=== PATIENT | male | born 1960 | race Caucasian/White ===

== ENCOUNTER 2017-04-09 16:52 | Emergency (ER) | payer MEDICARE ==
[~2017-04-09] VITALS: Ht 182.9 cm; Wt 108.9 kg
[~2017-04-09 16:52] MED LIST: ASPI-498 PO; CLOP75TA41 PO; LIS20T PO; MET50T PO; NITR0.4S29 SL; SIMV-13 PO
[2017-04-09 17:13] VITALS: BP 140/75
[2017-04-09] MEDS ORDERED: cefTRIAXone SOD 1,000 MG VL IM ONE (17:30)
== END 2017-04-09 17:47 | disposition home or self-care (01) ==
LOC: ER 17:01
DX: S80.862A Insect bite (nonvenomous), left lower leg, initial encounter (principal); S80.861A Insect bite (nonvenomous), right lower leg, initial encounter; I10 Essential (primary) hypertension; I25.2 Old myocardial infarction; E78.5 Hyperlipidemia, unspecified; Z86.73 Personal history of transient ischemic attack (TIA), and cerebral infarction without residual deficits; Z98.61 Coronary angioplasty status; Z91.018 Allergy to other foods; Z91.013 Allergy to seafood; W57.XXXA Bitten or stung by nonvenomous insect and other nonvenomous arthropods, initial encounter; Y93.89 Activity, other specified; Y99.8 Other external cause status; Y92.89 Other specified places as the place of occurrence of the external cause
CPT/HCPCS: 96372; 99283; J0696

== ENCOUNTER 2019-09-05 00:24 | Emergency (ER) | payer OTHER ==
[~2019-09-05] VITALS: Ht 182.9 cm; Wt 117.9 kg
[~2019-09-05 00:24] MED LIST changes: +BAC09TP TOP; +DIPH25CA66 PO; +PRE5T PO; +SULF400T11 PO
[2019-09-05 01:46] LABS: Basophils # (auto) 0.1 uL; Basophils % (auto) 0.9 % (0.0-2.0); Eosinophils # (auto) 0.4 uL; Hematocrit 42.7 % (41.0-53.0); Hemoglobin 14.9 g/dL (13.5-17.5); Lymphocytes # (auto) 1.6 uL; Lymphocytes % (auto) 20.2 % (10.0-50.0); Mean Corpuscular Hemoglobin 33.7 pg (28.0-32.0); Mean Corpuscular Hgb Conc. 34.9 g/dL (32.0-36.0); Mean Corpuscular Volume 96.5 fL (80.0-100.0); Monocytes # (auto) 0.6 uL; Monocytes % (auto) 7.2 % (0.0-12.0); Neutrophils # (auto) 5.3 uL; Neutrophils % (auto) 66.7 % (37.0-80.0); Nucleated Red Blood Cells % 0.1 %; Platelet Count (auto) 220 10^3/uL (140-450); Red Blood Cells 4.43 10^6/uL (4.5-5.90); White Blood Cell 7.9 10^3/uL (4.4-10.8)
[2019-09-05 02:04] LABS: Alanine Aminotransferase 43 U/L (16-61); Albumin 3.7 g/dL (3.4-5.0); Anion Gap 6 (5-15); Aspartate Aminotransferase 28 U/L (15-37); Blood Urea Nitrogen 11 mg/dL (7-18); Calcium 8.7 mg/dL (8.5-10.1); Carbon Dioxide 24 mmol/L (21-32); Chloride 109 mmol/L (98-107); GFR African American 109 mL/min; GFR Non-African American 90 mL/min; Glucose 115 mg/dL (74-106); Potassium 4.3 mmol/L (3.5-5.1); Sodium 139 mmol/L (136-145)
[2019-09-05 02:20] LABS: Alkaline Phosphatase 67 U/L (45-117); Bilirubin, Total 0.8 mg/dL (0.2-1.0); Total Protein 7.5 g/dL (6.4-8.2)
[2019-09-05] MEDS ORDERED: IOHEXOL 300 MG/ML 100ML BOTTLE IJ ONE (04:42)
[2019-09-05 05:19] LABS: Amylase 43 U/L (25-115); Lipase 139 U/L (73-393)
[2019-09-05 06:00] VITALS: BP 144/75
[2019-09-05] MEDS ORDERED: HYDROcodone-ACET 5/325MG TAB PO ONE (07:00)
[2019-09-05] MEDS ORDERED: cefTRIAXone 1GM/50ML D5W 50 ML IV ONE (07:00)
== END 2019-09-05 09:06 | disposition home or self-care (01) ==
LOC: ER 00:24
DX: R59.1 Generalized enlarged lymph nodes (principal); M54.2 Cervicalgia; J45.909 Unspecified asthma, uncomplicated; E78.5 Hyperlipidemia, unspecified; I10 Essential (primary) hypertension; I25.2 Old myocardial infarction; Z98.61 Coronary angioplasty status; Z91.013 Allergy to seafood; Z79.899 Other long term (current) drug therapy
CPT/HCPCS: 36415; 70491; 80053; 82150; 83690; 83880; 84484; 85025; 93005; 96365; 99285; J0696; Q9967

== ENCOUNTER 2021-04-02 23:19 | Emergency (ER) | payer OTHER ==
[~2021-04-02] VITALS: Ht 182.9 cm; Wt 119.3 kg
[~2021-04-02 23:19] MED LIST changes: -CLOP75TA41 PO; +CLOP75TA70 PO
[2021-04-03 02:22] VITALS: BP 140/93
== END 2021-04-03 04:58 | disposition home or self-care (01) ==
LOC: ER 23:19
DX: S93.501A Unspecified sprain of right great toe, initial encounter (principal); S93.601A Unspecified sprain of right foot, initial encounter; S93.401A Sprain of unspecified ligament of right ankle, initial encounter; E66.9 Obesity, unspecified; I10 Essential (primary) hypertension; I25.2 Old myocardial infarction; E78.5 Hyperlipidemia, unspecified; F12.10 Cannabis abuse, uncomplicated; Z98.61 Coronary angioplasty status; Z86.73 Personal history of transient ischemic attack (TIA), and cerebral infarction without residual deficits; Z68.35 Body mass index [BMI] 35.0-35.9, adult; Z79.899 Other long term (current) drug therapy; Z91.018 Allergy to other foods; Z91.013 Allergy to seafood
CPT/HCPCS: 73610; 73630

== ENCOUNTER 2024-08-29 22:50 | Emergency (ER) | payer OTHER ==
[~2024-08-29] VITALS: Ht 182.9 cm; Wt 131.8 kg
[~2024-08-29 22:50] MED LIST changes: -SIMV-13 PO; +SIMV40TA18 PO
[2024-08-30 00:47] VITALS: PULSE 65; RESP 19; O2SAT 97
[2024-08-30] MEDS: KETOROLAC TROMETH 30 MG/ML 1ML VIAL IM ONE (00:55)
[2024-08-30] MEDS: methylPREDNISolone SOD SUCC 125 MG/2 ML VL IM ONE (00:55)
[2024-08-30] MEDS ORDERED: CYCL-837 PO (01:12)
--- NOTE | 2024-08-30 01:13 | ED.PDOC ---
History of Present Illness HPI Comments 64-year-old male was concerned of the blood pressure. States he took his blood pressure at home and it read 200s over 110. States he was recently started on hydralazine 25 mg b.i.d.. States he started taking that on last week. He was took one at 9:00 a.m. this evening. States he was rechecked and he was still 200 over 90s. Denies any headache. States he has been having a sore neck over the last two weeks. Primary doctor did prescribe him baclofen 10 mg but he states he does not think it is helping down much. Upon arrival patient was blood pressure is 177 over 80. Chief Complaint: High Blood Pressure Time Seen by MD: 23:19 Primary Care Provider: VIPIN Reviewed Notes: Nurses Notes Allergies: Coded Allergies: Avocado (Verified Allergy, Severe, SWELL UP REALLY BAD, 03/16/16) Shellfish Allergy (Verified Allergy, Mild, ITCHY, 03/16/16) Uncoded Allergies: CUCUMBER (Allergy, Severe, SWELLING UP, 03/16/16) NUTS (Allergy, Unknown, 04/09/17) Home Meds Active Scripts Diphenhydramine Hcl (Benadryl Allergy) 25 Mg Cap, 1 CAP PO Q6HR PRN, #30 CAP 1 Refill Prov:GISELL,[facility] 06/20/17 Prednisone (PREDNISONE) 5 Mg Tb, 5 MG PO DAILY for 7 Days Prov:SHANNEN JAMESON [facility] 06/20/17 Bacitracin (Bacitracin Oint) 1 Applic Ap, 1 APPLIC TOP Q12HR for 5 Days, #2 Prov:[facility] 06/20/17 Sulfamethoxazole-Trimethoprim (Bactrim) 1 Tab Tab, 1 TAB PO Q12HR for 7 Days, #14 TAB Prov:GISELL,[facility] 06/20/17 Reported Medications Lisinopril (ZESTRIL TABLET) 20 Mg Tb, 20 MG PO QPM 03/16/16 Nitroglycerin (NTROSTAT SUBLINGUAL) 0.4 Mg Sl, 0.4 MG SL PRN *MAY REPEAT EVERY 5 MINUTES X 3 TOTAL IF NO RELIEF, INITIATE ANALGESIC THERAPY. NOTIFY PHYSICIAN *Do not crush. 03/16/16 Aspirin (ASPIRIN 81) 81 Mg Tab, 81 MG PO DAILY, TAB 03/16/16 Simvastatin (Simvastatin) 40 Mg Tab, 1 TAB PO QPM, #30 TAB 5 Refills 03/16/16 Metoprolol Tartrate (LOPRESSOR TABLET) 50 Mg Tb, 1 TAB PO BID, #60 TAB 5 Refills 03/16/16 Clopidogrel Bisulfate (CLOPIDOGREL) 75 Mg Tab, 1 TAB PO DAILY, #90 TAB 1 Refill 03/16/16 Information Source: Patient Mode of Arrival: Ambulatory Past Medical History PAST MEDICAL HISTORY: Asthma, CAD, High Lipids, HTN, PR Surgical History: PTCA Family History Family History: Reviewed,noncontributory to illness Social History Smoker: Non-Smoker Alcohol: Occasionally Drugs: Marijuana Lives In: Home Constitutional: denies: chills, diaphoresis, fatigue, fever, malaise, sweats, weakness, others EENTM: denies: blurred vision, double vision, ear bleeding, ear discharge, ear drainage, ear pain, ear ringing, eye pain, eye redness, hearing loss, mouth pain , mouth swelling, nasal discharge, nose bleeding, nose congestion, nose pain, photophobia, tearing, throat pain, throat swelling, voice changes, others Respiratory: denies: cough, hemoptysis, orthopnea, SOB at rest, shortness of breath, SOB with excertion, stridor, wheezing, others Cardiovascular: denies: chest pain, dizzy spells, diaphoresis, Dyspnea on exertion, edema, irregular heart beat, left arm pain, lightheadedness, palpitations, PND, syncope, others Gastrointestinal: denies: abdomen distended, abdominal pain, blood streaked bowels, constipated, diarrhea, dysphagia, difficulty swallowing, hematemesis, melena, nausea, poor appetite, poor fluid intake, rectal bleeding, rectal pain, vomiting, others Genitourinary: denies: burning, dysuria, flank pain, frequency, hematuria, incontinence, penile discharge, penile sore, pain, testicle pain, testicle swelling, urgency, others Neurological: denies: dizziness, fainting, headache, left sided numbness, left sided weakness, numbness, paresthesia, pre-existing deficit, right sided numbness, right sided weakness, seizure, speech problems, tingling, tremors, weakness, others Musculoskeletal: reports: muscle stiffness, neck pain; denies: back pain, gout, joint pain, joint swelling, muscle pain, others Integumetry: denies: bruises, change in color, change in hair/nails, dryness, laceration, lesions, lumps, rash, wounds, others Allergic/Immunocompromised: denies: Difficulty Healing, Frequent Infections, Hives, Itching, others Hematologic/Lymphatic: denies: anemia, blood clots, easy bleeding, easy bruising, swollen glands, others Physical Exam General Appearance: No Apparent Distress, Normal HEENT: Normal ENT Inspection, Pharynx Normal, TMs Normal Neck: Full Range of Motion, Non-Tender, Normal, Normal Inspection Respiratory: Chest Non-Tender, Lungs Clear, No Accessory Muscle Use, No Respiratory Distress, Normal Breath Sounds Cardiovascular: No Edema, No JVD, No Murmur, No Gallop, Normal Peripheral Pulses, Regular Rate/Rhythm Breast Exam: Deferred Gastrointestinal: No Organomegaly, Non Tender, No Pulsatile Mass, Normal Bowel Sounds, Soft Genitalia: Deferred Pelvic: Deferred Rectal: Deferred Extremities: No calf tenderness, Normal capillary refill, Normal inspection, Normal range of motion, Non-tender, No pedal edema Musculoskeletal : Apperance: Normal Neurologic: Alert, director audience marketing II-XII nml as Tested, No Motor Deficits, Normal Affect, Normal Mood, No Sensory Deficits Cerebellar Function: Normal Reflexes: Normal Skin: Dry, Normal Color, Warm Lymphatic: No Adenopathy Was a procedure done? Was a procedure done?: No Differential Dx Considerations may include: Hypertensive emergency, cervical radiculopathy, tension headache, torticollis X-Ray, Labs, Meds, VS Vital Signs Date Time Temp Pulse Resp B/P (MAP) Pulse Ox O2 Delivery O2 Flow Rate FiO2 08/30/24 00:47 65 19 97 Room Air* 0 21 08/30/24 00:46 97.9 65 20 156/86 (109) 97 97.9 08/29/24 23:05 97.4 63 14 179/81 (113) 97 Current Medications Medications (Trade) Dose Ordered Sig/Wallace Route Start Time Stop Time Status Last Admin Ketorolac Tromethamine (Toradol Injection) 30 mg ONCE ONCE IM 08/29/24 23:30 08/29/24 23:31 DC 08/30/24 00:55 Methylprednisolone Sodium Succinate (Solu Medrol) 125 mg ONCE ONCE IM 08/29/24 23:30 08/29/24 23:31 DC 08/30/24 00:55 X-Ray, Labs, Meds, VS Comment Imaging: X-rays and CT scans were reviewed and interpreted by this provider, imaging shows no fractures and no pathological disease. Pending radiology review. Laboratory: Labs reviewed and interpreted by this provider. No significant abnormalities noted. Patient has prior medical visits reviewed. Med reconciliation performed Vital signs reviewed Time of 1ST Reevaluation: 01:12 Reevaluation 1ST: Improved Patient Education/Counseling: Diagnosis, Treatment, Need For Follow Up (Patient advised to follow-up in the emergency room in the next 24 to 48 hours if symptoms do not improve. Advised follow-up with PCP in the next 3 to 5 days. Patient verbalized understanding. ) Family Education/Counseling: Diagnosis Departure 1 Departure Time of Disposition: 01:07 Impression: Primary Impression: HTN (hypertension) Qualified Codes: I10 - Essential (primary) hypertension Additional Impression: Cervical strain Qualified Codes: S16.1XXA - Strain of muscle, fascia and tendon at neck level, initial encounter Disposition: HOME / SELF CARE / HOMELESS Condition: Fair e-Prescriptions Cyclobenzaprine Hcl (Cyclobenzaprine Hcl) 5 Mg Tab 1 TAB PO QPM PRN, #30 TAB Prov: JON PEPPER 08/30/24 Discharged With: Self Critical Care Note Critical Care Time?: No Stability Stability form required: No Heart Score Heart Score: Heart Score Response (Comments) Value History N/A 0 EKG N/A 0 Age N/A 0 Risk Factors N/A 0 Troponin N/A 0 Total 0 JON PEPPER Aug 30, 2024 01:12
[2024-08-30 01:35] VITALS: BP 141/89; PULSE 66; RESP 17; TEMP 97.7; O2SAT 97
== END 2024-08-30 01:37 | disposition home or self-care (01) ==
LOC: ER 22:50
DX: S16.1XXA Strain of muscle, fascia and tendon at neck level, initial encounter (principal); I10 Essential (primary) hypertension; I25.10 Atherosclerotic heart disease of native coronary artery without angina pectoris; E78.5 Hyperlipidemia, unspecified; J45.909 Unspecified asthma, uncomplicated; I25.2 Old myocardial infarction; Z91.013 Allergy to seafood; Z91.018 Allergy to other foods; X58.XXXA Exposure to other specified factors, initial encounter; Y93.89 Activity, other specified; Y92.89 Other specified places as the place of occurrence of the external cause; Y99.8 Other external cause status
CPT/HCPCS: 96372; 99283; J1885; J2919